=== PATIENT | female | born 1950 | race Caucasian/White ===

== ENCOUNTER 2018-03-17 18:33 | Emergency (ER) | payer MEDICARE ==
[~2018-03-17] VITALS: Ht 167.6 cm; Wt 99.8 kg
--- NOTE | ~2018-03-17 | EKG ---
[place], [place] ELECTROCARDIOGRAM REPORT NAME: LINNEA LOCKE UNIT #: [id number] ROOM: DOCTOR: EPIPHANY DRAFT REPORT BIRTHDATE: [birth year] [facility] Test Date: 2018-03-17 Test Time: 19:11:05 Pat Name: LINNEA LOCKE Department: ER Room: 3 Gender: F Directional Driller: EKG.OR : 1950 Requested By: GRAZYNA TORRES Order Number: [id number] Reading MD: Eliezer Guerrero MD Measurements Intervals [place] Rate: 80 P: 30 OR: 144 QRS: -3 QRSD: 96 T: 6 QT: 446 QTc: 515 Interpretive Statements Sinus rhythm Minimal ST depression Prolonged QT interval Baseline wander in lead(s) I,II,aVR,V1,V2,V3,V4,V5,V6 Electronically Signed On 03-22-2018 11:25:58 PDT by Eliezer Guerrero MD CM:EKGRPT:ELECTROCARDIOGRAM REPORT 10 1125 GRAZYNA MORTENSEN DRAFT REPORT GRAZYNA TORRES DO
[2018-03-17 19:14] LABS: BASO % 0.2 % (0.0-1.0); HEMATOCRIT 35.3 % (37.0-47.0); HEMOGLOBIN 11.7 g/dl (12.0-16.0); LYMPH # 0.3 10*3/uL (1.3-4.4); LYMPH % 4.4 % (27.0-41.0); MEAN CELL VOLUME 84.7 fl (81.0-99.0); MEAN CORPUSCULAR HGB 28.1 pg (27.0-31.0); MEAN CORPUSCULAR HGB CONC 33.1 g/dl (33.0-37.0); MEAN PLATELET VOLUME 10.2 fl (9.6-12.3); MONO # 0.5 10*3/uL (0.1-1.0); MONO % 6.8 % (3.0-9.0); NEUT # 5.8 10*3/uL (2.3-7.9); NEUT % 88.3 % (47.0-73.0); PLATELET COUNT AUTOMATED 145 10*3/uL (130-400); RED BLOOD COUNT 4.17 10*6/uL (4.10-5.10); RED CELL DISTRI WIDTH 13.7 % (0-14.5); WHITE BLOOD COUNT 6.6 10*3/uL (4.8-10.8)
[2018-03-17 19:26] LABS: ACT PARTIAL THROMBO TIME 29.9 SECONDS (20.8-31.5); INTERNATIONAL NORM RATIO 1.2 (2.0-3.5)
[2018-03-17 19:30] LABS: ALKALINE PHOSPHATASE 45 U/L (45-117); BUN 20 mg/dl (7-24); CHLORIDE 99 mmol/L (98-107); LIPASE 122 U/L (73-393); SGOT/AST 23 IU/L (3-35); SGPT/ALT 20 U/L (12-78); SODIUM 137 mmol/L (136-145); TOTAL PROTEIN 6.1 gm/dL (6.4-8.2)
[2018-03-17 19:33] LABS: TROPONIN I < 0.015 ng/ml (<0.045)
[2018-03-17 21:50] LABS: BILIRUBIN 1+ (NEGATIVE); CLARITY CLEAR (CLEAR); COLOR YELLOW (YELLOW); GLUCOSE NEGATIVE (NEGATIVE); KETONE 3+ (NEGATIVE)
[2018-03-17 21:51] LABS: BACTERIA TRACE; BLOOD 3+ (NEGATIVE); LEUKO ESTERASE NEGATIVE (NEGATIVE); NITRITE NEGATIVE (NEGATIVE); PH 6.5 (5.0-9.0); WBC 0-2 wbc/hpf (0-5); YEAST 1+
[2018-03-17] MEDS ORDERED: LEVOFLOXACIN500 MG PO (22:24)
== END 2018-03-17 22:24 | disposition home or self-care (01) ==
LOC: ED 18:33
PROVIDERS: Emergency Medicine
DX: J18.1 Lobar pneumonia, unspecified organism (principal); Z88.0 Allergy status to penicillin